=== PATIENT | female | born 1955 | race Caucasian/White ===

== ENCOUNTER 2017-06-17 20:30 | Emergency (ER) | payer OTHER ==
[2017-06-17] MEDS ORDERED: IPRATROPIUM-ALBUTEROL 3 ML NEB INHALATION STA (21:01)
[2017-06-17] MEDS ORDERED: ACETAMINOPHEN TAB 500 MG TAB PO STA (21:02)
[2017-06-17] MEDS ORDERED: IBUPROFEN 600 MG TAB PO STA (21:02)
--- NOTE | 2017-06-17 21:05 | ED ---
URI HPI - General Chief Complaint: Upper Respiratory Infection Stated Complaint: Leg cramps Time Seen by Provider: 06/17/17 20:42 Source: patient, family, RN notes reviewed Mode of arrival: wheelchair Limitations: no limitations - History of Present Illness Initial Comments: 61-year-old female presents emergency Department with chief complaint of fever chills cough congestion body aches. Patient states that symptoms started last night while at work it's are progressively getting worse for the day. She states she tried taken aspirin earlier today without taking Tylenol or Motrin for her fever. She states that she has a dry hacking cough though she is a smoker. She denies any shortness of breath. She states that she is some tightness in her right side which seemed to resolve. She states that she felt that she had pleurisy which she's had in the past. 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 Patient denies ear pain, sore throat. She does admit to a headache. - Related Data Previous Rx's Medication Instructions Recorded Albuterol Sulfate [Proair Hfa] 1 - 2 puff INHALATION Q4HR PRN #1 06/17/17 inhaler Levofloxacin [Levaquin] 500 mg PO DAILY #10 tab 06/17/17 Allergies Allergy/AdvReac Type Severity Reaction Status Date / Time No Known Allergies Allergy Verified 06/17/17 20:38 Review of Systems ROS Statement: Those systems with pertinent positive or pertinent negative responses have been documented in the HPI. ROS Other: All systems not noted in ROS Statement are negative. Past Medical History Additional Past Medical History / Comment(s): leukemia 2004 History of Any Multi-Drug Resistant Organisms: None Reported Past Surgical History: Cholecystectomy, Hysterectomy Additional Past Surgical History / Comment(s): tubular Past Psychological History: No Psychological Hx Reported Smoking Status: Current every day smoker Past Alcohol Use History: None Reported Past Drug Use History: None Reported General Exam Limitations: no limitations General appearance: alert, in no apparent distress Head exam: Present: atraumatic, normocephalic, normal inspection Eye exam: Present: normal appearance, PERRL, EOMI. Absent: scleral icterus, conjunctival injection, periorbital swelling ENT exam: Present: normal exam, normal oropharynx, mucous membranes moist, TM's normal bilaterally Neck exam: Present: normal inspection, full ROM. Absent: tenderness, meningismus, lymphadenopathy Respiratory exam: Present: wheezes. Absent: normal lung sounds bilaterally, respiratory distress, rales, rhonchi, stridor Cardiovascular Exam: Present: normal rhythm, tachycardia, normal heart sounds. Absent: systolic murmur, diastolic murmur, rubs, gallop, clicks Neurological exam: Present: alert, oriented X3, CN II-XII intact Skin exam: Present: warm, dry, intact, normal color. Absent: rash Course Vital Signs 06/17/17 06/17/17 06/17/17 20:33 21:42 21:56 Temperature 100.4 F H Pulse Rate 119 H 110 H 114 H Respiratory 20 Rate Blood Pressure 124/66 O2 Sat by Pulse 97 Oximetry Medical Decision Making - Medical Decision Making 61-year-old female presented emergency department for fever chills cough body aches. Patient's found have pneumonia and chest x-ray. Patient's influenza is negative. Lab work shows mild elevation in white count. Patient offers admission patient declined states that she rather go home at this time. She was discharged with antibiotics, inhaler return parameters were discussed. - Lab Data Result diagrams: 06/17/17 21:41 06/17/17 21:41 Lab Results 06/17/17 06/17/17 06/17/17 Range/Units 20:48 21:41 21:41 WBC 16.3 H (3.8-10.6) k/uL RBC 4.50 (3.80-5.40) m/uL Hgb 14.0 (11.4-16.0) gm/dL Hct 40.0 (34.0-46.0) % MCV 89.0 (80.0-100.0) fL MCH 31.1 (25.0-35.0) pg MCHC 34.9 (31.0-37.0) g/dL RDW 14.1 (11.5-15.5) % Plt Count 199 (150-450) k/uL Neutrophils % 76 % Lymphocytes % 17 % Monocytes % 6 % Eosinophils % 0 % Basophils % 0 % Neutrophils # 12.4 H (1.3-7.7) k/uL Lymphocytes # 2.7 (1.0-4.8) k/uL Monocytes # 0.9 (0-1.0) k/uL Eosinophils # 0.1 (0-0.7) k/uL Basophils # 0.1 (0-0.2) k/uL Sodium 138 (137-145) mmol/L Potassium 3.7 (3.5-5.1) mmol/L Chloride 102 (98-107) mmol/L Carbon Dioxide 25 (22-30) mmol/L Anion Gap 11 mmol/L BUN 14 (7-17) mg/dL Creatinine 0.90 (0.52-1.04) mg/dL Est GFR (MDRD) Af Amer >60 (>60 ml/min/1.73 sqM) Est GFR (MDRD) Non-Af >60 (>60 ml/min/1.73 sqM) Glucose 109 H (74-99) mg/dL Plasma Lactic Acid Eliazar (0.7-2.0) mmol/L Calcium 9.8 (8.4-10.2) mg/dL Total Bilirubin 1.1 (0.2-1.3) mg/dL AST 20 (14-36) U/L ALT 40 (9-52) U/L Alkaline Phosphatase 42 (38-126) U/L Total Protein 7.2 (6.3-8.2) g/dL Albumin 4.3 (3.5-5.0) g/dL Influenza Type A RNA Not Detected (Not Detectd) Influenza Type B (PCR) Not Detected (Not Detectd) 06/17/17 Range/Units 21:41 WBC (3.8-10.6) k/uL RBC (3.80-5.40) m/uL Hgb (11.4-16.0) gm/dL Hct (34.0-46.0) % MCV (80.0-100.0) fL MCH (25.0-35.0) pg MCHC (31.0-37.0) g/dL RDW (11.5-15.5) % Plt Count (150-450) k/uL Neutrophils % % Lymphocytes % % Monocytes % % Eosinophils % % Basophils % % Neutrophils # (1.3-7.7) k/uL Lymphocytes # (1.0-4.8) k/uL Monocytes # (0-1.0) k/uL Eosinophils # (0-0.7) k/uL Basophils # (0-0.2) k/uL Sodium (137-145) mmol/L Potassium (3.5-5.1) mmol/L Chloride (98-107) mmol/L Carbon Dioxide (22-30) mmol/L Anion Gap mmol/L BUN (7-17) mg/dL Creatinine (0.52-1.04) mg/dL Est GFR (MDRD) Af Amer (>60 ml/min/1.73 sqM) Est GFR (MDRD) Non-Af (>60 ml/min/1.73 sqM) Glucose (74-99) mg/dL Plasma Lactic Acid Eliazar 0.9 (0.7-2.0) mmol/L Calcium (8.4-10.2) mg/dL Total Bilirubin (0.2-1.3) mg/dL AST (14-36) U/L ALT (9-52) U/L Alkaline Phosphatase (38-126) U/L Total Protein (6.3-8.2) g/dL Albumin (3.5-5.0) g/dL Influenza Type A RNA (Not Detectd) Influenza Type B (PCR) (Not Detectd) Disposition Clinical Impression: Pneumonia Disposition: HOME SELF-CARE Condition: Stable Instructions: Pneumonia (ED) Additional Instructions: Please return to the Emergency Department if symptoms worsen or any other concerns. Prescriptions: Albuterol Sulfate [Proair Hfa] 1 - 2 puff INHALATION Q4HR PRN #1 inhaler PRN Reason: difficulty in breathing Levofloxacin [Levaquin] 500 mg PO DAILY #10 tab Referrals: None,Stated [Primary Care Provider] - 1-2 days Time of Disposition: 22:30
--- NOTE | 2017-06-17 21:18 | XR ---
EXAMINATION TYPE: XR chest 2V DATE OF EXAM: 06/17/2017 COMPARISON: Chest x-ray July 07, 2011 HISTORY: Cough and fever. TECHNIQUE: Frontal and lateral views of the chest are obtained. FINDINGS: There is new patchy linear right basilar opacity favoring atelectasis and/or less likely i nfiltrate localized to right middle lobe on lateral view. Left lung is clear. No pleural effusion or pneumothorax is seen bilaterally. Patient is rotated to the right. Trachea is slightly deviated to r ight of midline even accounting for rotation. Correlate for possible left thyroid enlargement or goit er. Other etiologies not excluded. The cardiac silhouette size is within normal limits. The osseous structures are intact. Cholecystectomy clips are noted on lateral view. IMPRESSION: Chronic parenchymal change with new patchy right middle lobe linear atelectasis and/or in filtrate.
[2017-06-17] MEDS ORDERED: cefTRIAXone IN SWFI 1,000 MG/10 ML SYRINGE IVP STA (21:22)
[2017-06-17] MEDS ORDERED: methylPREDNISolone SOD SUCCI 125 MG/2 ML VIAL IV STA (21:22)
[2017-06-17 21:52] LABS: Basophils # (A) 0.1 k/uL (0-0.2); Basophils % (A) 0 %; Eosinophils # (A) 0.1 k/uL (0-0.7); Eosinophils % (A) 0 %; Lymphocytes # (A) 2.7 k/uL (1.0-4.8); Lymphocytes % (A) 17 %; MCH 31.1 pg (25.0-35.0); MCHC 34.9 g/dL (31.0-37.0); Mean Platelet Volume 7.4; Monocytes # (A) 0.9 k/uL (0-1.0); Monocytes % (A) 6 %; Neutrophils # (A) 12.4 k/uL (1.3-7.7); Neutrophils % (A) 76 %; Platelet Count 199 k/uL (150-450); RDW 14.1 % (11.5-15.5); WBC 16.3 k/uL (3.8-10.6)
[2017-06-17 22:02] LABS: ALT 40 U/L (9-52); AST 20 U/L (14-36); Albumin 4.3 g/dL (3.5-5.0); Alkaline Phosphatase 42 U/L (38-126); Anion Gap 11 mmol/L; Blood Urea Nitrogen 14 mg/dL (7-17); Calcium 9.8 mg/dL (8.4-10.2); Carbon Dioxide 25 mmol/L (22-30); Chloride 102 mmol/L (98-107); Glucose 109 mg/dL (74-99); Potassium 3.7 mmol/L (3.5-5.1); Sodium 138 mmol/L (137-145); Total Bilirubin 1.1 mg/dL (0.2-1.3); Total Protein 7.2 g/dL (6.3-8.2)
[2017-06-17] MEDS ORDERED: ONDANSETRON 4 MG/2 ML VIAL IVP STA (22:28)
[2017-06-17] MEDS ORDERED: HYDROmorphone 2 MG/ML 1 ML SYRINGE IVP STA (22:28)
[2017-06-17] MEDS ORDERED: LEVOFLOXACIN 500 MG TAB PO STA (22:28)
[2017-06-17 22:50] VITALS: BP 108/54; PULSE 95; RESP 18; TEMP 100.7
== END 2017-06-17 22:50 | disposition home or self-care (01) ==
LOC: EC 20:30
DX: J18.9 Pneumonia, unspecified organism (principal); F17.200 Nicotine dependence, unspecified, uncomplicated; Z85.6 Personal history of leukemia
CPT/HCPCS: 96375 ×4; 96374 ×2; 99284 ×2; 36415; 94640; 80053; 83605; 85025; 87040; 87502; 71046; J1170; J2930; J2405; J0696

== ENCOUNTER 2018-10-03 00:01 | Emergency (ER) | payer OTHER ==
[2018-10-03 00:16] VITALS: TEMP 98.7
--- NOTE | 2018-10-03 00:29 | ED ---
General Adult HPI - General Chief complaint: Back Pain/Injury Stated complaint: Rib Pain Time Seen by Provider: 10/03/18 00:21 Source: patient, RN notes reviewed, old records reviewed Mode of arrival: ambulatory Limitations: no limitations - History of Present Illness Initial comments: 63-year-old female presenting for evaluation of left-sided chest pain. Pain is been present for the past 24 hours. Worse with deep inspiration. Pain did begin with bending forward, this was relatively sudden in onset. Patient does report mild cough which she has chronically. She is a current smoker. No history of coronary artery disease. No history DVT or PE. Denies lower extremity pain or swelling. Denies abdominal pain. Denies vomiting. Pain is sharp and worse with deep inspiration. - Related Data Previous Rx's Medication Instructions Recorded Albuterol Sulfate [Proair Hfa] 1 - 2 puff INHALATION Q4HR PRN #1 06/17/17 inhaler Levofloxacin [Levaquin] 500 mg PO DAILY #10 tab 06/17/17 Azithromycin [Zithromax Z-pack] 0 mg PO DIRECTED #6 tab 10/03/18 Ibuprofen [Motrin] 600 mg PO Q8HR PRN #24 tab 10/03/18 Allergies Allergy/AdvReac Type Severity Reaction Status Date / Time No Known Allergies Allergy Verified 06/17/17 20:38 Review of Systems ROS Statement: Those systems with pertinent positive or pertinent negative responses have been documented in the HPI. ROS Other: All systems not noted in ROS Statement are negative. Past Medical History Additional Past Medical History / Comment(s): leukemia 2004 History of Any Multi-Drug Resistant Organisms: None Reported Past Surgical History: Cholecystectomy, Hysterectomy Additional Past Surgical History / Comment(s): tubular Past Psychological History: No Psychological Hx Reported Smoking Status: Current every day smoker Past Alcohol Use History: None Reported Past Drug Use History: None Reported General Exam Limitations: no limitations General appearance: alert, in no apparent distress Head exam: Present: atraumatic, normocephalic Eye exam: Present: normal appearance, PERRL ENT exam: Present: normal exam Neck exam: Present: normal inspection. Absent: tenderness, meningismus Respiratory exam: Present: respiratory distress, wheezes, rhonchi Cardiovascular Exam: Present: regular rate, normal rhythm GI/Abdominal exam: Present: soft. Absent: distended, tenderness, guarding Extremities exam: Present: normal inspection, normal capillary refill. Absent: pedal edema Back exam: Present: normal inspection Neurological exam: Present: alert, oriented X3, CN II-XII intact. Absent: motor sensory deficit Psychiatric exam: Present: normal affect, normal mood Skin exam: Present: warm, dry, intact. Absent: cyanosis, diaphoretic Course Vital Signs 10/03/18 00:10 Temperature 98.7 F Pulse Rate 82 Respiratory 18 Rate Blood Pressure 139/91 O2 Sat by Pulse 98 Oximetry EKG Findings - EKG Comments: EKG Findings:: EKG: Normal sinus rhythm, rate of 69, [place] interval 180, QRS duration [address] segment elevation or depression T waves are upright Medical Decision Making - Medical Decision Making 63-year-old female presenting with left-sided chest pain. Pain is typical of ACS however patient does have risk factors. Workup in the emergency department reveals normal sinus EKG with no ischemic changes. Chest x-ray shows left basilar atelectasis, also right tracheal deviation. Patient will follow with her primary care physician regarding the tracheal deviation, do not feel it is contributing to her symptoms today. She has cough, she is a current smoker and given this atelectasis she will be treated for concern for developing pneumonia. She has normal CBC, normal CMP, d-dimer and troponin are negative. - Lab Data Result diagrams: 10/03/18 00:55 10/03/18 00:55 Lab Results 10/03/18 10/03/18 10/03/18 Range/Units 00:55 00:55 00:55 WBC 8.7 (3.8-10.6) k/uL RBC 4.50 (3.80-5.40) m/uL Hgb 14.1 (11.4-16.0) gm/dL Hct 41.4 (34.0-46.0) % MCV 92.0 (80.0-100.0) fL MCH 31.4 (25.0-35.0) pg MCHC 34.1 (31.0-37.0) g/dL RDW 13.3 (11.5-15.5) % Plt Count 194 (150-450) k/uL Neutrophils % 49 % Lymphocytes % 43 % Monocytes % 4 % Eosinophils % 2 % Basophils % 1 % Neutrophils # 4.2 (1.3-7.7) k/uL Lymphocytes # 3.7 (1.0-4.8) k/uL Monocytes # 0.3 (0-1.0) k/uL Eosinophils # 0.2 (0-0.7) k/uL Basophils # 0.0 (0-0.2) k/uL PT 10.4 (9.0-12.0) sec INR 1.0 (<1.2) APTT 24.1 (22.0-30.0) sec D-Dimer 0.57 (<0.60) mg/L FEU Sodium 142 (137-145) mmol/L Potassium 3.6 (3.5-5.1) mmol/L Chloride 108 H (98-107) mmol/L Carbon Dioxide 25 (22-30) mmol/L Anion Gap 9 mmol/L BUN 14 (7-17) mg/dL Creatinine 0.80 (0.52-1.04) mg/dL Est GFR (CKD-EPI)AfAm >90 (>60 ml/min/1.73 sqM) Est GFR (CKD-EPI)NonAf 80 (>60 ml/min/1.73 sqM) Glucose 106 H (74-99) mg/dL Calcium 9.9 (8.4-10.2) mg/dL Magnesium 1.9 (1.6-2.3) mg/dL Total Bilirubin 0.7 (0.2-1.3) mg/dL AST 30 (14-36) U/L ALT 40 (9-52) U/L Alkaline Phosphatase 46 (38-126) U/L Troponin I (0.000-0.034) ng/mL Total Protein 7.2 (6.3-8.2) g/dL Albumin 4.5 (3.5-5.0) g/dL Lipase 111 (23-300) U/L 10/03/18 Range/Units 00:55 WBC (3.8-10.6) k/uL RBC (3.80-5.40) m/uL Hgb (11.4-16.0) gm/dL Hct (34.0-46.0) % MCV (80.0-100.0) fL MCH (25.0-35.0) pg MCHC (31.0-37.0) g/dL RDW (11.5-15.5) % Plt Count (150-450) k/uL Neutrophils % % Lymphocytes % % Monocytes % % Eosinophils % % Basophils % % Neutrophils # (1.3-7.7) k/uL Lymphocytes # (1.0-4.8) k/uL Monocytes # (0-1.0) k/uL Eosinophils # (0-0.7) k/uL Basophils # (0-0.2) k/uL PT (9.0-12.0) sec INR (<1.2) APTT (22.0-30.0) sec D-Dimer (<0.60) mg/L FEU Sodium (137-145) mmol/L Potassium (3.5-5.1) mmol/L Chloride (98-107) mmol/L Carbon Dioxide (22-30) mmol/L Anion Gap mmol/L BUN (7-17) mg/dL Creatinine (0.52-1.04) mg/dL Est GFR (CKD-EPI)AfAm (>60 ml/min/1.73 sqM) Est GFR (CKD-EPI)NonAf (>60 ml/min/1.73 sqM) Glucose (74-99) mg/dL Calcium (8.4-10.2) mg/dL Magnesium (1.6-2.3) mg/dL Total Bilirubin (0.2-1.3) mg/dL AST (14-36) U/L ALT (9-52) U/L Alkaline Phosphatase (38-126) U/L Troponin I <0.012 (0.000-0.034) ng/mL Total Protein (6.3-8.2) g/dL Albumin (3.5-5.0) g/dL Lipase (23-300) U/L Disposition Clinical Impression: Atypical chest pain Disposition: HOME SELF-CARE Condition: Good Instructions (If sedation given, give patient instructions): Chest Pain (ED) Prescriptions: Ibuprofen [Motrin] 600 mg PO Q8HR PRN #24 tab PRN Reason: Pain Azithromycin [Zithromax Z-pack] 0 mg PO DIRECTED #6 tab Is patient prescribed a controlled substance at d/c from ED?: No Referrals: None,Stated [Primary Care Provider] - 1-2 days Holly Sarah MD [STAFF PHYSICIAN] - 1-2 days Risa Sorensen MD [REFERRING] - 1-2 days Time of Disposition: 01:59
[2018-10-03 01:14] LABS: Basophils % (A) 1 %; Eosinophils # (A) 0.2 k/uL (0-0.7); Eosinophils % (A) 2 %; HCT 41.4 % (34.0-46.0); HGB 14.1 gm/dL (11.4-16.0); Lymphocytes # (A) 3.7 k/uL (1.0-4.8); Lymphocytes % (A) 43 %; MCH 31.4 pg (25.0-35.0); MCHC 34.1 g/dL (31.0-37.0); Monocytes # (A) 0.3 k/uL (0-1.0); Monocytes % (A) 4 %; Neutrophils # (A) 4.2 k/uL (1.3-7.7); Neutrophils % (A) 49 %; Platelet Count 194 k/uL (150-450); RDW 13.3 % (11.5-15.5); WBC 8.7 k/uL (3.8-10.6)
--- NOTE | 2018-10-03 01:16 | XR ---
EXAM: XR Chest, 2 Views CLINICAL HISTORY: ITS.REASON XR Reason: Chest Pain TECHNIQUE: Frontal and lateral views of the chest. COMPARISON: 06/17/2017 FINDINGS: Lungs: Minimal left basilar atelectasis. Otherwise lungs appear clear. Pleural space: Unremarkable. No pneumothorax. Heart: Unremarkable. No cardiomegaly. Mediastinum: Rightward tracheal deviation, similar or slightly increased. Bones/joints: Mild degenerative changes of the thoracic spine. IMPRESSION: 1. Minimal left basilar atelectasis. Otherwise lungs appear clear. 2. Rightward tracheal deviation, similar or slightly increased. Correlate with prior workup if available or could consider CT.
[2018-10-03 01:23] LABS: ALT 40 U/L (9-52); AST 30 U/L (14-36); Albumin 4.5 g/dL (3.5-5.0); Alkaline Phosphatase 46 U/L (38-126); Anion Gap 9 mmol/L; Blood Urea Nitrogen 14 mg/dL (7-17); Calcium 9.9 mg/dL (8.4-10.2); Carbon Dioxide 25 mmol/L (22-30); Chloride 108 mmol/L (98-107); Glucose 106 mg/dL (74-99); Lipase 111 U/L (23-300); Magnesium 1.9 mg/dL (1.6-2.3); Potassium 3.6 mmol/L (3.5-5.1); Sodium 142 mmol/L (137-145); Total Bilirubin 0.7 mg/dL (0.2-1.3); Total Protein 7.2 g/dL (6.3-8.2)
[2018-10-03] MEDS ORDERED: KETOROLAC 30 MG/ML 1 ML VIAL IVP STA (01:28)
[2018-10-03 01:37] LABS: D-Dimer 0.57 mg/L FEU (<0.60); Partial Thromboplastin Time 24.1 sec (22.0-30.0); Prothrombin Time 10.4 sec (9.0-12.0)
[2018-10-03 02:10] VITALS: BP 103/72; PULSE 72; RESP 20
== END 2018-10-03 02:09 | disposition home or self-care (01) ==
LOC: EC 00:01
DX: R07.89 Other chest pain (principal); R05 Cough; J98.11 Atelectasis; J39.8 Other specified diseases of upper respiratory tract; R07.1 Chest pain on breathing; F17.200 Nicotine dependence, unspecified, uncomplicated; Z85.6 Personal history of leukemia; Z90.49 Acquired absence of other specified parts of digestive tract; Z90.710 Acquired absence of both cervix and uterus
CPT/HCPCS: 36415; 93005; 85379; 80053; 83690; 83735; 84484; 85025; 85610; 85730; 71046; 99284; 96374; J1885

== ENCOUNTER 2021-02-15 03:33 | Observation (INO) | payer BC ==
--- NOTE | 2021-02-15 03:52 | ED ---
Chest Pain HPI - General Chief Complaint: Chest Pain Stated Complaint: Chest pain Time Seen by Provider: 02/15/21 03:34 Source: patient, EMS, RN notes reviewed, old records reviewed Mode of arrival: EMS Limitations: no limitations - History of Present Illness MD Complaint: chest pain -: hour(s) Onset: during rest, during exertion Pain Location: left chest Pain Radiation: LUE Severity: moderate Severity scale (1-10): 4 Quality: aching, heaviness Consistency: constant Improves With: nothing Worsens With: nothing Anginal Symptoms: dyspnea Other Symptoms: palpitations Treatments Prior to Arrival: none - Related Data Home Medications Medication Instructions Recorded Confirmed No Known Home Medications 02/15/21 02/15/21 Previous Rx's Medication Instructions Recorded Aspirin 81 mg PO DAILY #30 02/16/21 Atorvastatin [Lipitor] 80 mg PO DAILY #30 tab 02/16/21 Allergies Allergy/AdvReac Type Severity Reaction Status Date / Time No Known Allergies Allergy Verified 02/15/21 08:46 Review of Systems ROS Statement: Those systems with pertinent positive or pertinent negative responses have been documented in the HPI. ROS Other: All systems not noted in ROS Statement are negative. EKG Findings - EKG Comments: EKG Findings:: EKG is sinus rhythm 73 MN 160 QRS 90 QTC 447 Past Medical History Additional Past Medical History / Comment(s): leukemia 2004 History of Any Multi-Drug Resistant Organisms: None Reported Past Surgical History: Cholecystectomy, Hysterectomy Additional Past Surgical History / Comment(s): tubular Past Psychological History: No Psychological Hx Reported Smoking Status: Current every day smoker Past Alcohol Use History: Rare Past Drug Use History: None Reported General Exam Limitations: no limitations General appearance: alert, in no apparent distress Head exam: Present: atraumatic, normocephalic, normal inspection Eye exam: Present: normal appearance, PERRL, EOMI. Absent: scleral icterus, conjunctival injection, periorbital swelling ENT exam: Present: normal exam, mucous membranes moist Neck exam: Present: normal inspection. Absent: tenderness, meningismus, lymphadenopathy Respiratory exam: Present: normal lung sounds bilaterally. Absent: respiratory distress, wheezes, rales, rhonchi, stridor Cardiovascular Exam: Present: regular rate, normal rhythm, normal heart sounds. Absent: systolic murmur, diastolic murmur, rubs, gallop, clicks GI/Abdominal exam: Present: soft, normal bowel sounds. Absent: distended, tenderness, guarding, rebound, rigid Extremities exam: Present: normal inspection, full ROM, normal capillary refill. Absent: tenderness, pedal edema, joint swelling, calf tenderness Back exam: Present: normal inspection Neurological exam: Present: alert, oriented X3, CN II-XII intact Psychiatric exam: Present: normal affect, normal mood Skin exam: Present: warm, dry, intact, normal color. Absent: rash Course Vital Signs 02/15/21 02/15/21 02/15/21 03:36 04:45 05:50 Temperature 98.5 F Pulse Rate 75 72 77 Respiratory 16 18 18 Rate Blood Pressure 146/87 130/79 118/60 O2 Sat by Pulse 96 95 97 Oximetry - Reevaluation(s) Reevaluation #1: Medical record is reviewed Patient symptoms are improved here in the emergency department Patient is informed results and questions answered Patient is in no acute distress Disposition Clinical Impression: Chest pain Disposition: ADMITTED IP TO THIS HOSP Condition: Undetermined Is patient prescribed a controlled substance at d/c from ED?: No
--- NOTE | 2021-02-15 04:11 | XR ---
EXAMINATION TYPE: XR chest 2V DATE OF EXAM: 02/15/2021 COMPARISON: 10/03/2018 HISTORY: Chest pain TECHNIQUE: 2 views FINDINGS: Heart and mediastinum are normal. Lungs are clear. Diaphragm is normal. Bony thorax is inta ct. There are chest leads. IMPRESSION: Normal chest. No change.
[2021-02-15 04:34] LABS: Basophils # (A) 0.1 k/uL (0-0.2); Basophils % (A) 1 %; Eosinophils # (A) 0.2 k/uL (0-0.7); Eosinophils % (A) 2 %; HCT 44.2 % (34.0-46.0); HGB 15.3 gm/dL (11.4-16.0); Lymphocytes # (A) 2.8 k/uL (1.0-4.8); Lymphocytes % (A) 35 %; MCHC 34.6 g/dL (31.0-37.0); MCV 95.3 fL (80.0-100.0); Mean Platelet Volume 7.3; Monocytes # (A) 0.4 k/uL (0-1.0); Monocytes % (A) 5 %; Neutrophils # (A) 4.4 k/uL (1.3-7.7); Neutrophils % (A) 55 %; Platelet Count 208 k/uL (150-450); RBC 4.63 m/uL (3.80-5.40); RDW 13.5 % (11.5-15.5)
[2021-02-15 04:40] LABS: INR 0.9 (<1.2); Prothrombin Time 10.2 sec (9.0-12.0)
[2021-02-15 04:44] LABS: ALT 35 U/L (4-34); AST 39 U/L (14-36); African American GFR (CKD) >90 (>60 ml/min/1.73 sqM); Albumin 4.5 g/dL (3.5-5.0); Alkaline Phosphatase 50 U/L (38-126); Anion Gap 9 mmol/L; Blood Urea Nitrogen 16 mg/dL (7-17); Calcium 9.3 mg/dL (8.4-10.2); Carbon Dioxide 21 mmol/L (22-30); Chloride 109 mmol/L (98-107); Glucose 108 mg/dL (74-99); Lipase 175 U/L (23-300); Magnesium 1.9 mg/dL (1.6-2.3); Non-African American GFR(CKD) 78 (>60 ml/min/1.73 sqM); Sodium 139 mmol/L (137-145); Total Bilirubin 0.4 mg/dL (0.2-1.3); Total Protein 7.4 g/dL (6.3-8.2)
[2021-02-15] MEDS ORDERED: ASPIRIN 81 MG PO STA (04:46)
[2021-02-15] MEDS ORDERED: NITROGLYCERIN SL TABS 0.4 MG TAB SUBLINGUAL PRN (04:46)
[2021-02-15] MEDS ORDERED: MORPHINE SULFATE 4 MG/ML SYRINGE IV PRN (04:46)
[2021-02-15] MEDS: SODIUM CHLORIDE 0.9% 1,000 ML IV SCH (05:13)
[2021-02-15 05:21] LABS: Partial Thromboplastin Time 19.2 sec (22.0-30.0)
[2021-02-15] MEDS ORDERED: FAMOTIDINE 20 MG/2 ML VIAL IV SCH (09:00)
[2021-02-15] MEDS: ATORVASTATIN 80 MG TAB PO SCH (09:46)
[2021-02-15] MEDS: HEPARIN SODIUM,PORCINE/PF 5,000 UNIT/0.5 ML SYRINGE SQ SCH ×2 (09:46→19:29)
--- NOTE | 2021-02-15 09:50 | P.CRDCN ---
History of Present Illness Consult date: 02/15/21 History of present illness: This is a 64-year-old female with history of chronic smoking with family history of ischemic heart disease on her father's side, comes to the hospital with complaints of chest tightness. Yesterday patient started having some tight feeling in the chest. Patient apparently went to sleep and woke up. And had dinner around 7:00 then tried to go to bed again patient have some chest tightness and also symptoms of palpitations and rapid heartbeat. Patient was concerned and took her blood pressure and blood pressure was in the range of 180/102 Patient was concerned and came to the hospital. So far her EKG showed sinus rhythm. Her blood pressure was initially high but subsequently came down. She was treated with morphine and nitroglycerin. Patient did not have any history of previous ischemic heart disease. No history of hypertension or diabetes. She was not taking any medication prior to admission. Patient is being scheduled for an echocardiogram and a stress echocardiogram in the morning. Her cardiac enzymes have been normal. Patient does have some rhonchi from smoking. Patient also has noticed some swelling of the legs , suggestive of mild edema Review of Systems As per the chart Past Medical History Additional Past Medical History / Comment(s): leukemia 2004 History of Any Multi-Drug Resistant Organisms: None Reported Past Surgical History: Cholecystectomy, Hysterectomy Additional Past Surgical History / Comment(s): tubular Past Anesthesia/Blood Transfusion Reactions: Previous Problems w/ Anesthesia Additional Past Anesthesia/Blood Transfusion Reaction / Comment(s): woke up during hysterectomy procedure Past Psychological History: No Psychological Hx Reported Smoking Status: Current every day smoker Past Alcohol Use History: Rare Past Drug Use History: None Reported Medications and Allergies Home Medications Medication Instructions Recorded Confirmed Type No Known Home Medications 02/15/21 02/15/21 History Allergies Allergy/AdvReac Type Severity Reaction Status Date / Time No Known Allergies Allergy Verified 02/15/21 08:46 Physical Exam Vitals: Vital Signs Temp Pulse Pulse Resp BP BP Pulse Ox 02/15/21 07:00 98.4 F 64 16 119/64 97 02/15/21 06:19 98 F 66 16 147/87 98 02/15/21 05:50 77 18 118/60 97 02/15/21 04:45 72 18 130/79 95 02/15/21 03:36 98.5 F 75 16 146/87 96 Intake and Output 02/14/21 02/15/21 02/15/21 22:59 06:59 14:59 Other: Voiding Method Toilet # Voids 0 Weight 86.183 kg GENERAL EXAM: Patient is alert and oriented and doesn't appear to be in any acute distress HEENT: Normocephalic. Normal reaction of pupils, equal size, normal range of extraocular motion. No erythema or exudates in the throat. NECK: No masses, no nuchal rigidity. CHEST: No chest wall deformity. LUNGS: Equal air entry with no crackles or wheeze. HEART: S1 and S2 normal with no audible mumurs or gallops. Regular rhythm, femorals equal on both sides.. ABDOMEN: No hepatosplenomegaly, normal bowel sounds, no guarding or rigidity. SKIN: No rashes CENTRAL NERVOUS SYSTEM: No focal deficits. EXTREMITIES: No cyanosis, clubbing or edema. Results 02/15/21 04:01 02/15/21 04:01 Cardiac Enzymes 02/15/21 02/15/21 02/15/21 Range/Units 04:01 04:01 06:36 AST 39 H (14-36) U/L Troponin I <0.012 <0.012 (0.000-0.034) ng/mL Coagulation 02/15/21 Range/Units 04:01 PT 10.2 (9.0-12.0) sec APTT 19.2 L (22.0-30.0) sec CBC 02/15/21 Range/Units 04:01 WBC 8.0 (3.8-10.6) k/uL RBC 4.63 (3.80-5.40) m/uL Hgb 15.3 (11.4-16.0) gm/dL Hct 44.2 (34.0-46.0) % Plt Count 208 (150-450) k/uL Comprehensive Metabolic Panel 02/15/21 Range/Units 04:01 Sodium 139 (137-145) mmol/L Potassium 4.0 (3.5-5.1) mmol/L Chloride 109 H (98-107) mmol/L Carbon Dioxide 21 L (22-30) mmol/L BUN 16 (7-17) mg/dL Creatinine 0.81 (0.52-1.04) mg/dL Glucose 108 H (74-99) mg/dL Calcium 9.3 (8.4-10.2) mg/dL AST 39 H (14-36) U/L ALT 35 H (4-34) U/L Alkaline Phosphatase 50 (38-126) U/L Total Protein 7.4 (6.3-8.2) g/dL Albumin 4.5 (3.5-5.0) g/dL Current Medications Generic Name Dose Route Start Last Admin Trade Name Freq PRN Reason Stop Dose Admin Aspirin 325 mg 02/16/21 09:00 Aspirin 325 Mg Tab PO DAILY [facility] Atorvastatin Calcium 80 mg 02/15/21 09:00 Atorvastatin 80 Mg Tab PO DAILY [facility] Famotidine 20 mg 02/15/21 09:00 Famotidine 20 Mg/2 Ml Vial IV Q12HR [facility] Heparin Sodium (Porcine) 5,000 unit 02/15/21 09:00 Heparin Sodium,Porcine/Pf 5,000 Unit/0.5 Ml Syringe SQ Q12HR [facility] Sodium Chloride 1,000 mls @ 20 mls/hr 02/15/21 05:00 02/15/21 05:13 Saline 0.9% IV 20 mls/hr .Q24H [facility] Administration Morphine Sulfate 4 mg 02/15/21 04:46 Morphine Sulfate 4 Mg/Ml Syringe IV Q4HR PRN Chest Pain Nitroglycerin 0.4 mg 02/15/21 04:46 Nitroglycerin Sl Tabs 0.4 Mg Tab SUBLINGUAL Q5M PRN Chest Pain Intake and Output 02/14/21 02/15/21 02/15/21 22:59 06:59 14:59 Other: Voiding Method Toilet # Voids 0 Weight 86.183 kg 02/15/21 04:01 02/15/21 04:01 EKG Interpretations (text) Sinus rhythm Assessment and Plan (1) Essential hypertension Current Visit: Yes Status: Acute Code(s): I10 - ESSENTIAL (PRIMARY) HYPERTENSION SNOMED Code(s): 56952459 (2) Chest pain Current Visit: Yes Status: Acute Code(s): R07.9 - CHEST PAIN, UNSPECIFIED SNOMED Code(s): 81103583 (3) Smoking Current Visit: Yes Status: Acute Code(s): F17.200 - NICOTINE DEPENDENCE, UNSPECIFIED, UNCOMPLICATED SNOMED Code(s): 13621473 Plan: Patient chest pains are equivocal for angina. Enzymes have been negative. Patient does have history of smoking and family history of ischemic heart disease. Patient is being scheduled for a stress echocardiogram and also echocardiogram. Her blood pressure seemed to be labile. Continue to monitor her and may need antihypertensive medication. Further recommendations will depend upon the above tests
--- NOTE | 2021-02-15 12:22 | P.HPIM ---
History of Present Illness This is a pleasant 65 years old female with previous history of leukemia in 2003. Patient presents because of chest pain that started yesterday afternoon, moderate in severity constant, and review of the chest and across the front of the chest, nonradiating to the arm or jaw. Her pain is gone now. she denies dyspnea or coughing. No GI or urinary symptoms. Neck or dizziness. [place] about a pack per day. She is counseled to quit and she agrees to the nicotine patch. Or illicit tracts Vital signs stable Labs including CBC, BMP are unremarkable. AST is 39 and ALT is 35 which are only slightly elevated. Bone and is negative less than 0.012. Lipase normal at 175 EKG showing normal sinus rhythm at [address]-T changes Chest x-ray: Normal chest iN emergency room she was started on aspirin 325 mg Review of Systems CONSTITUTIONAL: No fever, no malaise, no fatigue. HEENT: No recent visual problems or hearing problems. Denied any sore throat. CARDIOVASCULAR: No orthopnea, PND, no palpitations, no syncope. PULMONARY: No shortness of breath, no cough, no hemoptysis. GASTROINTESTINAL: No diarrhea, no nausea, no vomiting, no abdominal pain. Normoactive bowel sounds. NEUROLOGICAL: No headaches, no weakness, no numbness. HEMATOLOGICAL: Denies any bleeding or petechiae. GENITOURINARY: Denies any burning micturition, frequency, or urgency. MUSCULOSKELETAL/RHEUMATOLOGICAL: Denies any joint pain, swelling, or any muscle pain. ENDOCRINE: Denies any polyuria or polydipsia. Past Medical History Additional Past Medical History / Comment(s): leukemia 2003 History of Any Multi-Drug Resistant Organisms: None Reported Past Surgical History: Cholecystectomy, Hysterectomy Additional Past Surgical History / Comment(s): tubular Past Anesthesia/Blood Transfusion Reactions: Previous Problems w/ Anesthesia Additional Past Anesthesia/Blood Transfusion Reaction / Comment(s): woke up during hysterectomy procedure Past Psychological History: No Psychological Hx Reported Smoking Status: Current every day smoker Past Alcohol Use History: Rare Past Drug Use History: None Reported Medications and Allergies Home Medications Medication Instructions Recorded Confirmed Type No Known Home Medications 02/15/21 02/15/21 History Allergies Allergy/AdvReac Type Severity Reaction Status Date / Time No Known Allergies Allergy Verified 02/15/21 08:46 Physical Exam Vitals: Vital Signs Temp Pulse Pulse Resp BP BP Pulse Ox 02/15/21 07:00 98.4 F 64 16 119/64 97 02/15/21 06:19 98 F 66 16 147/87 98 02/15/21 05:50 77 18 118/60 97 02/15/21 04:45 72 18 130/79 95 02/15/21 03:36 98.5 F 75 16 146/87 96 Intake and Output 02/14/21 02/15/21 02/15/21 22:59 06:59 14:59 Other: # Voids 0 Weight 86.183 kg GENERAL: The patient is alert and oriented x3, not in any acute distress. Well developed, well nourished. HEENT: Pupils are round and equally reacting to light. EOMI. No scleral icterus. No conjunctival pallor. Normocephalic, atraumatic. No pharyngeal erythema. No thyromegaly. CARDIOVASCULAR: S1 and S2 present. No murmurs, rubs, or gallops. PULMONARY: Chest is clear to auscultation, no wheezing or crackles. ABDOMEN: Soft, nontender, nondistended, normoactive bowel sounds. No palpable organomegaly. MUSCULOSKELETAL: No joint swelling or deformity. EXTREMITIES: No cyanosis, clubbing, or pedal edema. NEUROLOGICAL: Gross neurological examination did not reveal any focal deficits. SKIN: No rashes. No petechiae Results CBC & Chem 7: 02/15/21 04:01 02/15/21 04:01 Labs: Abnormal Lab Results - Last 24 Hours (Table) 02/15/21 02/15/21 Range/Units 04:01 04:01 APTT 19.2 L (22.0-30.0) sec Chloride 109 H (98-107) mmol/L Carbon Dioxide 21 L (22-30) mmol/L Glucose 108 H (74-99) mg/dL AST 39 H (14-36) U/L ALT 35 H (4-34) U/L Thrombosis Risk Factor Assmnt - Choose All That Apply Each Factor Represents 1 point: Obesity (BMI >25) Other Risk Factors: Yes Each Risk Factor Represents 2 Points: Age 61-74 years Other congenital or acquired thrombophilia - If yes, enter type in comment: No Thrombosis Risk Factor Assessment Total Risk Factor Score: 3 Thrombosis Risk Factor Assessment Level: Moderate Risk Assessment and Plan Assessment: Chest pain, now resolved but rule out cardiac causes Nicotine dependence BCT with BMI of 30.7 Plan: This is a pleasant 65 years old female who presents with chest pain. We'll do serial troponin. Cardiology consult. Continue with aspirin Labs and medication were reviewed.. Continue same treatment. Continue with symptomatic treatment. Resume home medication. Monitor lytes and vitals. DVT and GI prophylaxis. Further recommendations depends on the clinical course of the patient DVT prophylaxis: Subcutaneous heparin GI Prophylaxis: Pepcid
[2021-02-15] MEDS: NICOTINE 21MG/24HR PATCH TRANSDERM SCH (13:16)
[2021-02-15] MEDS: FAMOTIDINE 20 MG TAB PO SCH (19:28)
[2021-02-16] MEDS: SODIUM CHLORIDE 0.9% 1,000 ML IV SCH (05:14)
[2021-02-16 07:43] VITALS: RESP 18
[2021-02-16] MEDS: NICOTINE 21MG/24HR PATCH TRANSDERM SCH (08:36)
[2021-02-16] MEDS: ATORVASTATIN 80 MG TAB PO SCH (08:36)
[2021-02-16] MEDS: FAMOTIDINE 20 MG TAB PO SCH (08:36)
[2021-02-16] MEDS: HEPARIN SODIUM,PORCINE/PF 5,000 UNIT/0.5 ML SYRINGE SQ SCH (08:36)
[2021-02-16] MEDS ORDERED: ASPIRIN 325 MG TAB PO SCH (09:00)
[2021-02-16 10:45] LABS: Chol/HDL Ratio 7.76; LDL Cholesterol,Calculated 171.4 mg/dL (0.0-131.0); VLDL Calculation 58.6 mg/dL (5.00-40.00)
--- NOTE | 2021-02-16 12:33 | P.PN ---
Subjective Progress Note Date: 02/16/21 HISTORY OF PRESENT ILLNESS: Patient examined this morning. Patient denies chest pain or pressure. She denies shortness of breath. Denies dizziness or lightheadedness. Vital signs are stable. PHYSICAL EXAM: VITAL SIGNS: Reviewed. GENERAL: Well-developed in no acute distress. NECK: Supple. No JVD or thyromegaly LUNGS: Respirations even and unlabored. Lungs essentially clear to auscultation bilaterally. HEART: Regular rate and rhythm. S1 and S2 heard. EXTREMITIES: Normal range of motion. No clubbing or cyanosis. Peripheral pulses intact. No lower extremity edema ASSESSMENT: Chest pain Hypertension Nicotine dependence Family history of coronary artery disease PLAN: Continue current cardiac medications Patient to undergo stress echo today to assess for reversible ischemia. If stress test is negative, the patient may be discharged home today from a cardiac standpoint Nurse practitioner note has been reviewed by physician. Signing provider agrees with the documented findings, assessment, and plan of care. Objective - Vital Signs Vital signs: Vital Signs Temp 98.1 F 02/16/21 07:00 Pulse 65 02/16/21 08:00 Resp 18 02/16/21 08:00 BP 127/80 02/16/21 08:48 Pulse Ox 96 02/16/21 07:00 Intake & Output 02/15/21 02/16/21 02/16/21 18:59 06:59 18:59 Other: Voiding Method Toilet Toilet Toilet # Voids 1 2 - Labs CBC & Chem 7: 02/15/21 04:01 02/15/21 04:01 Labs: Abnormal Lab Results - Last 24 Hours (Table) 02/16/21 Range/Units 05:14 Triglycerides 293.0 H (0.0-149.0) mg/dL Cholesterol 264 H (0-200) mg/dL LDL Cholesterol, Calc 171.4 H (0.0-131.0) mg/dL VLDL Cholesterol, Calc 58.60 H (5.00-40.00) mg/dL HDL Cholesterol 34.0 L (40.0-60.0) mg/dL
[2021-02-16] MEDS ORDERED: ACETAMINOPHEN TAB 325 MG TAB PO STA (13:09)
[2021-02-16 14:51] VITALS: BP 130/80; PULSE 86; TEMP 98.2
--- NOTE | 2021-02-16 17:36 | ECHOF ---
Referral Reason:Chest pain MEASUREMENTS -------- HEIGHT: 167.6 cm WEIGHT: 86.2 kg BP: RVIDd: 3.4 cm (< 3.3) IVSd: 1.3 cm (0.6 - 1.1) LVIDd: 3.6 cm (3.9 - 5.3) LVPWd: 1.2 cm (0.6 - 1.1) IVSs: 1.5 cm LVIDs: 2.3 cm LVPWs: 1.4 cm LAESV Index (A-L): 18.51 ml/m Ao Diam: 3.4 cm (2.0 - 3.7) AV Cusp: 1.8 cm (1.5 - 2.6) MV EXCURSION: 18.739 mm (> 18.000) MV EF SLOPE: 67 mm/s (70 - 150) EPSS: 0.3 cm MV E Arnold: 1.00 m/s MV DecT: 242 ms MV A Arnold: 1.18 m/s MV E/A Ratio: 0.85 RAP: 5.00 mmHg RVSP: 27.19 mmHg FINDINGS -------- Sinus rhythm. This was a technically adequate study. The left ventricular size is normal. There is mild concentric left ventricular hypertrophy. Overa ll left ventricular systolic function is normal with, an EF between 55 - 60 %. The diastolic fillin g pattern is normal for the age of the patient 14.62. The right ventricle is mildly enlarged. Normal LA size by volume 22+/-6 ml/m2. The right atrial size is normal. Interatrial and interventricular septum intact. There is no evidence of aortic regurgitation. There is no evidence of aortic stenosis. There is trace mitral regurgitation. Mild tricuspid regurgitation present. There is no evidence of pulmonary hypertension. The right v entricular systolic pressure, as measured by Doppler, is 27.19mmHg. There is no pulmonic regurgitation present. The aortic root size is normal. IVC Not well visulized. There is no pericardial effusion. CONCLUSIONS -------- 1. The left ventricular size is normal. 2. There is mild concentric left ventricular hypertrophy. 3. Overall left ventricular systolic function is normal with, an EF between 55 - 60 %. 4. The diastolic filling pattern is normal for the age of the patient 14.62 5. The right ventricle is mildly enlarged. 6. There is trace mitral regurgitation. 7. Mild tricuspid regurgitation present. PILOT PLANT OPERATOR HELPER: Shira Stephen RDCS
--- NOTE | 2021-02-16 19:57 | P.DS ---
Providers Date of admission: 02/15/21 04:46 Attending physician: Mehran Woo Consults: 02/15/21 04:46 Consult Physician Urgent Consulting Provider: Andrew Costello Consult Reason/Comments: cp Do you want consulting provider notified?: Yes Primary care physician: Stated None Hospital Course: Diagnoses: Chest pain,resolved . Negative stress test hospital course: Nicotine dependence Obesity with BMI of 30.7 Hospital course: This is a pleasant 65 years old female with previous history of leukemia in 2003. Patient presents because of chest pain of one-day duration however her chest pain resolved since yesterday. And there were checked with her today several times she still have no chest pain even on discharge. No other complaints, no coughing or dyspnea. No change in urine or bowel habits. No fever. Catalytic Case Operator recommended a stress test which came back negative. I spoke with Dr. Vasquez bush hog operator on-call who discussed the case with her bush hog operator this morning Dr. Monge on both they cleared her for discharge and they recommended that she continues with baby aspirin until she sees her bush hog operator. I talked to the patient about the risks and benefits of aspirin with the risk of bleeding like bleeding into the brain, she verbalized understanding and acceptance to continue with aspirin and follow up with bush hog operator Statin started for her dyslipidemia Patient denies any other symptoms upon discharge and she agrees to go home today Problems and management plan were discussed with the patient and he verbalized understanding and acceptance Patient was found stable and can be discharged home however he needs follow-up as an outpatient. Patient was instructed to follow up with PCP within one week and patient agrees also patient was instructed to follow up with bush hog operator Dr. Curiel in 1-2 weeks and she agrees as he sees her as well Physical exam Gen: patient is a AAOx3, no distress CVS: S1-S2, RRR, no murmur Lungs: B/L CTA, no wheezing Abdomen: soft, no distention, no tenderness, positive bowel sounds Extremity: no leg edema or induration Time spent more than 35 minutes Patient Condition at Discharge: Undetermined Plan - Discharge Summary Discharge Rx Participant: No New Discharge Prescriptions: New Aspirin 81 mg PO DAILY #30 Atorvastatin [Lipitor] 80 mg PO DAILY #30 tab No Action No Known Home Medications Discharge Medication List No Known Home Medications 02/15/21 [History] Aspirin 81 mg PO DAILY #30 02/16/21 [Rx] Atorvastatin [Lipitor] 80 mg PO DAILY #30 tab 02/16/21 [Rx] Follow up Appointment(s)/Referral(s): Andrew Costello MD [STAFF PHYSICIAN] - 1 Week (bush hog operator ) None,Stated [Primary Care Provider] - 1-2 days Patient Instructions/Handouts: Chest Pain (ED) Activity/Diet/Wound Care/Special Instructions: heart healthy diet activity is restricted till you see your doctor Discharge Disposition: HOME SELF-CARE
--- NOTE | 2021-02-17 08:23 | ECHOS ---
STRESS ECHOCARDIOGRAM INDICATIONS: Chest pain. BASELINE HEART RATE: 72 BASELINE BLOOD PRESSURE: 113/65 MAXIMUM HEART RATE: 154 MAXIMUM BLOOD PRESSURE: 187/85 85% MPHR: 133 100% MPHR: 157 METS: 4.4 MAXIMUM STAGE REACHED: 1 TOTAL EXERCISE TIME: 3:00 CLINICAL INFORMATION: Baseline EKG shows sinus rhythm, normal axis, normal intervals. Patient exercised on Chuy protocol for a total of 3 minutes, achieving 4 METS, 85% of predicted maximal heart rate, without chest pain or diagnostic ST-segment depression. Baseline echo shows normal left ventricular size, wall motion, systolic function. Post exercise there is normal hyperdynamic response of all segments of myocardium noted. CONCLUSIONS: 1. Poor exercise tolerance. 2. Negative stress test by EKG criteria. 3. Negative stress echo. MMODL / IJN: [id number] /
[2021-02-17] MEDS ORDERED: ASPIRIN 81 MG PO SCH (09:00)
== END 2021-02-16 19:06 | disposition home or self-care (01) ==
LOC: EC 03:33 → 6NMEDSUR 04:46
PROVIDERS: ADMIT Hospitalist; ATTEND Hospitalist
DX: R07.89 Other chest pain (principal); R00.2 Palpitations; R00.0 Tachycardia, unspecified; R06.00 Dyspnea, unspecified; E78.5 Hyperlipidemia, unspecified; I10 Essential (primary) hypertension; R74.01 Elevation of levels of liver transaminase levels; E66.9 Obesity, unspecified; Z68.30 Body mass index [BMI] 30.0-30.9, adult; F17.210 Nicotine dependence, cigarettes, uncomplicated; Z85.6 Personal history of leukemia; Z71.6 Tobacco abuse counseling; Z90.49 Acquired absence of other specified parts of digestive tract; Z90.710 Acquired absence of both cervix and uterus; Z82.49 Family history of ischemic heart disease and other diseases of the circulatory system
CPT/HCPCS: 96372 ×2; 96374; 99285; 36415; 94760; 93005; 93306; 93351; 83880; 80061; 80053; 83690; 83735; 84484; 85025; 85610; 85730; 71046; G0378 ×2; S4990 ×2; J1644 ×2

== ENCOUNTER 2024-08-10 22:00 | Emergency (ER) | payer BC ==
[2024-08-10] MEDS: OXYMETAZOLINE 0.05% NASL SPRAY 1 SPRAY BOTTLE NASAL STA (22:41)
[2024-08-10] MEDS: SILVER NITRATE APPLICATOR 1 EACH STICK..EA. TOPICAL STA (23:17)
--- NOTE | 2024-08-10 23:44 | ED ---
ENT HPI - General Chief complaint: ENT Stated complaint: Nose bleed Time Seen by Provider: 08/10/24 22:09 Source: patient, EMS Mode of arrival: EMS - History of Present Illness Initial comments: 68-year-old female presenting with chief complaint of nosebleed. Patient reports that she was at home when she blew her nose, states that she felt something that was dry and crusty and removed it from her nose and that is when the bleeding started around 2100. Patient does not take blood thinners. No weakness or dizziness. She has been holding pressure to try to stop the bleeding. No history of intractable nosebleeds. No injury or trauma. No abdominal pain nausea or vomiting. No chest pain or difficulty breathing. - Related Data Home Medications Medication Instructions Recorded Confirmed No Known Home Medications 02/15/21 02/15/21 Previous Rx's Medication Instructions Recorded Aspirin 81 mg PO DAILY #30 02/16/21 Atorvastatin [Lipitor] 80 mg PO DAILY #30 tab 02/16/21 Allergies Allergy/AdvReac Type Severity Reaction Status Date / Time No Known Allergies Allergy Verified 08/10/24 22:07 Review of Systems ROS Statement: Those systems with pertinent positive or pertinent negative responses have been documented in the HPI. ROS Other: All systems not noted in ROS Statement are negative. Past Medical History Additional Past Medical History / Comment(s): leukemia 2004 History of Any Multi-Drug Resistant Organisms: None Reported Past Surgical History: Cholecystectomy, Hysterectomy Additional Past Surgical History / Comment(s): tubular Past Anesthesia/Blood Transfusion Reactions: Previous Problems w/ Anesthesia Additional Past Anesthesia/Blood Transfusion Reaction / Comment(s): woke up during hysterectomy procedure Past Psychological History: No Psychological Hx Reported Smoking Status: Current every day smoker Past Alcohol Use History: Rare Past Drug Use History: None Reported General Exam General appearance: alert, in no apparent distress Head exam: Present: atraumatic, normocephalic, normal inspection Eye exam: Present: normal appearance, EOMI ENT exam: Present: other (Bleeding from the left nostril) Neck exam: Present: normal inspection. Absent: meningismus Respiratory exam: Absent: respiratory distress Neurological exam: Present: alert, oriented X3 Psychiatric exam: Present: normal affect, normal mood Skin exam: Present: warm, dry, normal color Course Vital Signs 08/10/24 08/10/24 08/10/24 22:03 22:29 23:51 Temperature 99.8 F H 99.2 F Pulse Rate 106 H 104 H Respiratory 20 22 Rate Blood Pressure 163/101 141/102 136/105 O2 Sat by Pulse 96 97 Oximetry Medical Decision Making - Medical Decision Making Was pt. sent in by a medical professional or institution (FERNANDO Danielle, MARINE SPECIALIST, urgent care, hospital, or [place] [facility] facility...) When possible be specific @ -No Did you speak to anyone other than the patient for history (EMS, parent, family, police, friend...)? What history was obtained from this source @ -No Did you review nursing and triage notes (agree or disagree)? Why? @ -I reviewed and agree with nursing and triage notes Were old charts reviewed (outside hosp., previous admission, EMS record, old EKG, old radiological studies, urgent care reports/EKG's, [place] [facility] records)? Report findings @ -No old charts were reviewed Differential Diagnosis (chest pain, altered mental status, abdominal pain women, abdominal pain men, vaginal bleeding, weakness, fever, dyspnea, syncope, headache, dizziness, GI bleed, back pain, seizure, CVA, palpatations, mental health, musculoskeletal)? @ -Differential includes anatomical abnormality, coagulopathy, patient error in efforts to stop nosebleed, hypertension, not an all-inclusive list EKG interpreted by me (3pts min.). @ -As above X-rays interpreted by me (1pt min.). @ -None done CT interpreted by me (1pt min.). @ -None done U/S interpreted by me (1pt. min.). @ -None done What testing was considered but not performed or refused? (CT, X-rays, U/S, labs)? Why? @ -None What meds were considered but not given or refused? Why? @ -None Did you discuss the management of the patient with other professionals (professionals i.e. FERNANDO Danielle, MARINE SPECIALIST, lab, RT, psych nurse, social psychologist, warehouse analyst, teacher, ordnance corps officer, senior case manager)? Give summary @ -No Was smoking cessation discussed for >3mins.? @ -No Was critical care preformed (if so, how long)? @ -No Were there social determinants of health that impacted care today? How? (Homelessness, low income, unemployed, alcoholism, drug addiction, transportation, low edu. Level, literacy, decrease access to med. care, penitentiary, rehab)? @ -No Was there de-escalation of care discussed even if they declined (Discuss DNR or withdrawal of care, Hospice)? DNR status @ -No What co-morbidities impacted this encounter? (DM, HTN, Smoking, COPD, CAD, Cancer, CVA, ARF, Chemo, Hep., AIDS, mental health diagnosis, sleep apnea, morbid obesity)? @ -None Was patient admitted / discharged? Hospital course, mention meds given and route, prescriptions, significant lab abnormalities, going to OR and other pertinent info. @ -68-year-old female presenting with chief complaint of nosebleed. Upon arrival the patient is a bit hypertensive. She is holding pressure to the nose with an ABD pad provided to her by EMS. No blood thinners. No injury or trauma. Afrin is applied to each nostril and the nasal clamp is applied for 15 minutes. On reassessment patient has significant improvement in her bleeding, but there is still a small trickle of blood from the left nostril. Silver nitrate sticks are used to cauterize the area and patient has no continued bleeding. Patient is observed in has no recurrence of the bleeding. She would like to go home. She is educated on today's findings and management plan. Follow-up with PCP. Report back to ER with any new or worsening symptoms. Discussed return parameters and answered all questions. Patient conveyed verbal understanding and agreed to the plan. I discussed this case in detail with my attending Dr. Lowe Undiagnosed new problem with uncertain prognosis? @ -No Drug Therapy requiring intensive monitoring for toxicity (Heparin, Nitro, Insul in, Cardizem)? @ -No Were any procedures done? @ -No Diagnosis/symptom? @ -Epistaxis Acute, or Chronic, or Acute on Chronic? @ -Acute Uncomplicated (without systemic symptoms) or Complicated (systemic symptoms)? @ -Uncomplicated Side effects of treatment? @ -No Exacerbation, Progression, or Severe Exacerbation? @ -No Poses a threat to life or bodily function? How? (Chest pain, [place], [place], pneumonia, PE, COPD, DKA, ARF, appy, cholecystitis, CVA, Diverticulitis, Homicidal, Suicidal, threat to staff... and all critical care pts) @ -Unlikely Disposition Clinical Impression: Epistaxis Disposition: HOME SELF-CARE Condition: Good Instructions (If sedation given, give patient instructions): Nosebleed (ED) Additional Instructions: Follow-up with PCP. Report back to ER with any new or worsening symptoms. Is patient prescribed a controlled substance at d/c from ED?: No Referrals: None,Stated [Primary Care Provider] - 1-2 days Forms: Area PCPs Time of Disposition: 23:44
[2024-08-10 23:52] VITALS: BP 136/105; PULSE 104; RESP 22; TEMP 99.2
== END 2024-08-10 23:53 | disposition home or self-care (01) ==
LOC: EC 22:00
DX: R04.0 Epistaxis (principal); F17.200 Nicotine dependence, unspecified, uncomplicated
CPT/HCPCS: 30901; 99284